=== PATIENT | female | born 1970 | race Caucasian/White ===

== ENCOUNTER → 2021-08-07 | Outpatient (CLI) | payer OTHER | LOC: HEART 5 11:26 | DX: R05.3 Chronic cough (principal); R06.02 Shortness of breath; J31.0 Chronic rhinitis | CPT/HCPCS: 94010; 95012 ==

== ENCOUNTER → 2021-08-21 | Outpatient (CLI) | payer OTHER | LOC: KOH-I 09:30 | DX: J31.0 Chronic rhinitis (principal); J34.2 Deviated nasal septum | CPT/HCPCS: 70486 ==